=== PATIENT | male | born 1965 | race Hispanic/Latino ===

== ENCOUNTER 2021-03-22 09:56 | Inpatient (IN) | payer OTHER ==
[~2021-03-22] VITALS: Ht 170.2 cm; Wt 84.0 kg
[2021-03-22 09:58] VITALS: BP 114/68
[2021-03-22 10:23] LABS: BASOPHILS % (AUTO) 0.1 % (0.0-5.0); EOSINOPHILS % (AUTO) 0.1 % (0.0-8.0); HEMATOCRIT 44.3 % (42-54); LYMPHOCYTES % (AUTO) 15.4 % (21.0-51.0); MEAN CORPUSCULAR HEMOGLOBIN 30.2 pg (27.0-33.0); MEAN CORPUSCULAR HGB CONC 33.4 g/dL (32.0-36.0); MEAN CORPUSCULAR VOLUME 90.4 fL (79-99); MONOCYTES % (AUTO) 4.2 % (3.0-13.0); NEUTROPHILS % (AUTO) 79.6 % (40.0-77.0); PLATELET COUNT (AUTO) 184 K/uL (130-400); WHITE BLOOD COUNT (AUTO) 17.8 K/uL (4.8-10.8)
[2021-03-22 10:30] LABS: APPEARANCE,URINE Clear (CLEAR); BILIRUBIN,URINE Small (NEGATIVE); COLOR,URINE Orange (YELLOW); GLUCOSE, URINE (UA) Negative (NEGATIVE); KETONES,URINE Trace mg/dL (NEGATIVE); LEUKOCYTE ESTERASE ,URINE Trace (NEGATIVE); NITRATE,URINE Negative (NEGATIVE); OCCULT BLOOD,URINE Negative (NEGATIVE); PH,URINE 6.5 (5.0-8.0); PROTEIN,URINE Trace mg/dL (NEGATIVE)
[2021-03-22 10:31] LABS: CREATININE 0.9 mg/dL (0.5-1.5); POTASSIUM 3.7 mmol/L (3.5-5.1)
[2021-03-22 10:36] LABS: ALBUMIN 3.6 g/dL (3.5-5.0); BILIRUBIN,TOTAL 1.3 mg/dL (0.2-1.0); TOTAL PROTEIN, SERUM 7.3 g/dL (6.0-8.3)
[2021-03-22] MEDS ORDERED: IOHEXOL 350 MG/ML 100ML INFUS..BTL IV ONE ×2 (10:36→10:43)
[2021-03-22 10:37] LABS: BACTERIA,URINE Rare /HPF (None Seen); MUCUS,URINE Rare LPF (None Seen); RBC,URINE 0-1 /HPF (0-1); SQUAMOUS EPITHELIAL CELL,UR Rare /HPF (0-2); WBC,URINE 0-1 /HPF (0-1)
[2021-03-22] MEDS ORDERED: 0.9%NACL 50ML 50 ML IV SCH (11:00)
[2021-03-22] MEDS ORDERED: PIP/TAZ ZOSYN 3.375G 3.375 GM VIAL IVPB ONE (11:00)
[2021-03-22] MEDS ORDERED: 0.9%NACL 50ML IV ONE (11:00)
[2021-03-22] MEDS ORDERED: ZOSYN 3.375GM +NS 50ML IV SCH (11:00)
[2021-03-22] MEDS ORDERED: ACETAMINOPHEN 325 MG TAB PO PRN ×2 (12:00)
[2021-03-22] MEDS ORDERED: ONDANSETRON 4MG INJ IV PRN (12:00)
[2021-03-22] MEDS ORDERED: LACTULOSE 20 GM/30 ML UDCUP PO PRN (12:00)
[2021-03-22] MEDS ORDERED: ZOSYN 3.375GM+NS 50ML 50 ML IV SCH (13:00)
[2021-03-22] MEDS: 0.9%NACL 1000ML 1,000 ML IV SCH ×2 (13:08→23:25)
[2021-03-22] MEDS: MORPHINE 2 MG SYG IVP PRN ×4 (13:35→21:52)
[2021-03-22 13:53] VITALS: BP 106/51
[2021-03-22 17:34] VITALS: BP 114/60
[2021-03-22 19:22] VITALS: BP 112/63
[2021-03-22] MEDS: ZOSYN 3.375GM +NS 50ML IV SCH (21:52)
[2021-03-22 23:22] VITALS: BP 108/60
[2021-03-23] VITALS (7 sets, daily range): BP systolic 104–129; BP diastolic 61–93
[2021-03-23] MEDS: 0.9%NACL 50ML 50 ML IV SCH ×2 (05:20→21:47)
[2021-03-23] MEDS: ZOSYN 3.375GM +NS 50ML IV SCH ×3 (05:20→21:47)
[2021-03-23 06:15] LABS: BASOPHILS % (AUTO) 0.1 % (0.0-5.0); EOSINOPHILS % (AUTO) 0.1 % (0.0-8.0); HEMATOCRIT 40.1 % (42-54); LYMPHOCYTES % (AUTO) 13.6 % (21.0-51.0); MEAN CORPUSCULAR HGB CONC 32.9 g/dL (32.0-36.0); MEAN CORPUSCULAR VOLUME 91.1 fL (79-99); MONOCYTES % (AUTO) 5.8 % (3.0-13.0); NEUTROPHILS % (AUTO) 79.9 % (40.0-77.0); PLATELET COUNT (AUTO) 171 K/uL (130-400); RED CELL DISTRIBUTION WIDTH 14.1 % (11.0-15.5); WHITE BLOOD COUNT (AUTO) 13.8 K/uL (4.8-10.8)
[2021-03-23 06:30] LABS: POTASSIUM 4.1 mmol/L (3.5-5.1)
[2021-03-23] MEDS: 0.9%NACL 1000ML 1,000 ML IV SCH ×2 (09:08→17:37)
[2021-03-23] MEDS: PANTOPRAZOLE 40 MG/VIAL IVP SCH (09:09)
[2021-03-23] MEDS: ENOXAPARIN SODIUM 40 MG/0.4 ML SYRINGE SQ SCH (09:09)
[2021-03-23] MEDS: MORPHINE 2 MG SYG IVP PRN ×3 (13:07→21:47)
[2021-03-23] MEDS ORDERED: HYDROMORPHONE 1 MG INJ IVP PRN (18:30)
[2021-03-23] MEDS ORDERED: LISI20TA24 PO (20:30)
[2021-03-24] MEDS: 0.9%NACL 1000ML 1,000 ML IV SCH ×3 (04:12→23:52)
[2021-03-24] MEDS: ZOSYN 3.375GM +NS 50ML IV SCH ×3 (04:55→21:04)
[2021-03-24] MEDS: 0.9%NACL 50ML 50 ML IV SCH ×2 (04:56→21:04)
[2021-03-24 05:17] VITALS: BP 112/78
[2021-03-24 06:47] LABS: BASOPHILS % (AUTO) 0.1 % (0.0-5.0); EOSINOPHILS % (AUTO) 0.5 % (0.0-8.0); HEMATOCRIT 39.4 % (42-54); LYMPHOCYTES % (AUTO) 13.9 % (21.0-51.0); MEAN CORPUSCULAR HEMOGLOBIN 29.6 pg (27.0-33.0); MEAN CORPUSCULAR HGB CONC 32.5 g/dL (32.0-36.0); MEAN CORPUSCULAR VOLUME 91.2 fL (79-99); MONOCYTES % (AUTO) 6.7 % (3.0-13.0); NEUTROPHILS % (AUTO) 78.4 % (40.0-77.0); PLATELET COUNT (AUTO) 181 K/uL (130-400); RED BLOOD CELL COUNT(AUTO) 4.32 MIL/uL (4.50-6.20); RED CELL DISTRIBUTION WIDTH 13.6 % (11.0-15.5); WHITE BLOOD COUNT (AUTO) 9.7 K/uL (4.8-10.8)
[2021-03-24 07:04] LABS: POTASSIUM 4.5 mmol/L (3.5-5.1)
[2021-03-24 07:45] LABS: CRP QUANTITATIVE 217.5 mg/L (0.00-9.0)
[2021-03-24 07:49] LABS: CREATININE 0.9 mg/dL (0.5-1.5)
[2021-03-24 08:00] VITALS: BP 115/64
[2021-03-24] MEDS: MORPHINE 2 MG SYG IVP PRN (08:51)
[2021-03-24] MEDS: PANTOPRAZOLE 40 MG/VIAL IVP SCH (08:52)
[2021-03-24] MEDS: ENOXAPARIN SODIUM 40 MG/0.4 ML SYRINGE SQ SCH (08:53)
[2021-03-24 12:00] VITALS: BP 117/70
[2021-03-24 16:00] VITALS: BP 117/70
[2021-03-24] MEDS ORDERED: MORPHINE 2 MG SYG IVP PRN (18:30)
[2021-03-24 20:28] VITALS: BP 162/80
[2021-03-25 00:24] VITALS: BP 133/67
[2021-03-25 04:20] VITALS: BP 127/77
[2021-03-25] MEDS: 0.9%NACL 50ML 50 ML IV SCH (04:40)
[2021-03-25] MEDS: ZOSYN 3.375GM +NS 50ML IV SCH (04:40)
[2021-03-25 06:28] LABS: BASOPHILS % (AUTO) 0.2 % (0.0-5.0); EOSINOPHILS % (AUTO) 1.5 % (0.0-8.0); HEMATOCRIT 37.5 % (42-54); LYMPHOCYTES % (AUTO) 21.5 % (21.0-51.0); MEAN CORPUSCULAR HEMOGLOBIN 29.6 pg (27.0-33.0); MEAN CORPUSCULAR HGB CONC 33.3 g/dL (32.0-36.0); MEAN CORPUSCULAR VOLUME 88.9 fL (79-99); MONOCYTES % (AUTO) 8.5 % (3.0-13.0); NEUTROPHILS % (AUTO) 67.8 % (40.0-77.0); PLATELET COUNT (AUTO) 211 K/uL (130-400); RED BLOOD CELL COUNT(AUTO) 4.22 MIL/uL (4.50-6.20); RED CELL DISTRIBUTION WIDTH 13.4 % (11.0-15.5); WHITE BLOOD COUNT (AUTO) 6.5 K/uL (4.8-10.8)
[2021-03-25 07:46] VITALS: BP 134/76
[2021-03-25 08:07] LABS: CREATININE 0.8 mg/dL (0.5-1.5)
[2021-03-25 08:43] LABS: POTASSIUM 4.2 mmol/L (3.5-5.1)
[2021-03-25] MEDS: PANTOPRAZOLE 40 MG/VIAL IVP SCH (09:34)
[2021-03-25] MEDS: 0.9%NACL 1000ML 1,000 ML IV SCH (09:35)
[2021-03-25] MEDS: ENOXAPARIN SODIUM 40 MG/0.4 ML SYRINGE SQ SCH (09:35)
[2021-03-25 11:35] VITALS: BP 153/87
[2021-03-25 15:54] VITALS: BP 140/84
[2021-03-25] MEDS ORDERED: AMOX-429 PO (17:08)
== END 2021-03-25 18:50 | disposition home or self-care (01) | DRG 244 ==
LOC: EDH 09:56 → EDHIP 11:49 → 4BH 03-23 01:54
PROVIDERS: ADMIT Internal Medicine; ATTEND Internal Medicine
DX: K57.32 Diverticulitis of large intestine without perforation or abscess without bleeding (principal); I10 Essential (primary) hypertension; Z83.3 Family history of diabetes mellitus; Z82.49 Family history of ischemic heart disease and other diseases of the circulatory system
CPT/HCPCS: 36415; 74177; 80048; 80053; 81001; 84145; 85025; 86140; 87324; C9113; G0378; J1650; J2405; J2543; J7030; Q9967